=== PATIENT | female | born 1945 | race Caucasian/White ===

== ENCOUNTER 2017-04-15 17:27 | Outpatient (CLI) ==
[2016-03-20 08:49] VITALS: BMI 36.5
== END 2017-04-15 17:28 | disposition home or self-care (01) ==
LOC: AMBL 17:27
PROVIDERS: ATTEND Emergency Medicine
DX: R06.02 Shortness of breath (principal); R05 Cough; I50.9 Heart failure, unspecified; J44.9 Chronic obstructive pulmonary disease, unspecified; Z99.81 Dependence on supplemental oxygen

== ENCOUNTER 2017-10-29 08:37 | Outpatient (CLI) ==
[2016-03-20 08:49] VITALS: BMI 36.5
== END 2017-10-29 08:38 | disposition home or self-care (01) ==
LOC: NONPT 08:37
PROVIDERS: ATTEND Family Medicine
DX: R05 Cough (principal); R50.9 Fever, unspecified
CPT/HCPCS: 87804

== ENCOUNTER 2018-10-24 23:55 | Outpatient (CLI) | payer OTHER ==
[2016-03-20 08:49] VITALS: BMI 36.5
== END 2018-10-25 00:14 | disposition short-term general hospital (02) ==
LOC: AMBL 23:55
PROVIDERS: ATTEND Family Medicine
DX: M79.89 Other specified soft tissue disorders (principal); L53.9 Erythematous condition, unspecified; J44.9 Chronic obstructive pulmonary disease, unspecified; R40.2411 Glasgow coma scale score 13-15, in the field [EMT or ambulance]; Z74.01 Bed confinement status; Z99.81 Dependence on supplemental oxygen

== ENCOUNTER 2019-01-27 12:18 | Outpatient (CLI) ==
[2016-03-20 08:49] VITALS: BMI 36.5
== END 2019-01-27 12:41 | disposition short-term general hospital (02) ==
LOC: AMBL 12:18
PROVIDERS: ATTEND Internal Medicine
DX: R06.02 Shortness of breath (principal); R05 Cough; R09.89 Other specified symptoms and signs involving the circulatory and respiratory systems; M62.89 Other specified disorders of muscle; Z99.81 Dependence on supplemental oxygen

== ENCOUNTER 2019-02-03 08:01 | Outpatient (CLI) | payer OTHER ==
[2016-03-20 08:49] VITALS: BMI 36.5
== END 2019-02-03 08:08 | disposition critical access hospital (66) ==
LOC: AMBL 08:01
PROVIDERS: ATTEND Emergency Medicine
DX: M62.462 Contracture of muscle, left lower leg (principal); M62.461 Contracture of muscle, right lower leg

== ENCOUNTER 2019-02-03 08:16 | Outpatient (CLI) | payer OTHER ==
[2016-03-20 08:49] VITALS: BMI 36.5
--- NOTE | 2019-02-03 10:53 | CT ---
EXAM: CT chest with contrast HISTORY: Cough and congestion, lung nodule COMPARISON: None TECHNIQUE: CT chest performed with intravenous contrast. Coronal and sagittal reformatted images ob tained. FINDINGS: Thoracic inlet appear normal. Heart normal in size. No pericardial effusion. Aorta norm al in caliber. Mild atherosclerosis. Small hiatal hernia. Borderline enlarged mediastinal lymph no brea measure up to 1.0 cm in the precarinal region image 18 and 1 cm in the subcarinal region image 23 and borderline enlarged left hilar lymph node measuring 0.0 cm image 23.. Calcified mediastinal and hilar lymph nodes, consistent with old granulomatous disease. Liver diffusely decreased in attenuat ion. No acute abnormalities of the bones. Degenerative change in the spine. Cervical spinal fusion hardware. The central airway patent. Bilateral lower airway thickening. Mild bibasilar atelectasi s. No airspace consolidation. No pleural effusion. No pneumothorax. Mild emphysematous change. Mi nimal linear opacity right middle lobe likely scarring versus less likely small nodule, image 25. IMPRESSION: 1. Bilateral lower airway thickening, suggesting small airways infection/inflammation. 2. Mild bibasilar atelectasis. No airspace consolidation. 3. Mild emphysema. 4. Borderline mediastinal and bilateral hilar, nonspecific. Recommend CT chest follow-up with contr ast in 6 months. 5. Minimal linear opacity right middle lobe likely reflects scarring versus less likely small nodule . Recommend attention on follow-up. 6. Small hiatal hernia.
== END 2019-02-03 08:17 | disposition home or self-care (01) ==
LOC: RAD 08:16
PROVIDERS: ATTEND Family Medicine
DX: R91.1 Solitary pulmonary nodule (principal)
CPT/HCPCS: 36415; 80053

== ENCOUNTER 2019-02-03 09:56 | Outpatient (CLI) | payer OTHER ==
[2016-03-20 08:49] VITALS: BMI 36.5
== END 2019-02-03 10:06 ==
LOC: AMBL 09:56
PROVIDERS: ATTEND Emergency Medicine
DX: M62.462 Contracture of muscle, left lower leg (principal); M62.461 Contracture of muscle, right lower leg; Z74.01 Bed confinement status; E66.01 Morbid (severe) obesity due to excess calories; R06.2 Wheezing; J44.9 Chronic obstructive pulmonary disease, unspecified